=== PATIENT | male | born 1965 | race Caucasian/White ===

== ENCOUNTER → 2016-12-05 | Outpatient (CLI) | payer BC ==
[~2016-12-05] MED LIST: ATENOLOL25 MG PO; ELIQUIS5 MG PO; LISINOPRIL-HCT1 EAC1 PO; SOTALOL80 MG PO
== END ==
LOC: CARD REHAB 09:00
DX: Z48.812 Encounter for surgical aftercare following surgery on the circulatory system (principal); Z95.5 Presence of coronary angioplasty implant and graft